=== PATIENT | male | born 2000 | race Caucasian/White ===

== ENCOUNTER → 2019-12-18 10:13 | Outpatient (CLI) | payer OTHER, SELFPAY ==
[2019-12-17 16:29] VITALS: BMI 21.4
== END ==
PROVIDERS: PCP Pediatrics; Referring Provider Physician Assistant Surgical; Visit Provider Physician Assistant Surgical
DX: Z20.828 Contact with and (suspected) exposure to other viral communicable diseases (principal)
CPT/HCPCS: 87635; G2023; U0003